=== PATIENT | female | born 1985 | race African-American/Black ===

== ENCOUNTER 2018-12-15 16:54 | Emergency (ER) | payer OTHER ==
[~2018-12-15] VITALS: Ht 167.6 cm; Wt 90.0 kg
[2018-12-15 17:53] VITALS: BP 110/60
== END 2018-12-15 17:54 | disposition home or self-care (01) ==
LOC: EMS 16:55
DX: H02.89 Other specified disorders of eyelid (principal); J30.2 Other seasonal allergic rhinitis

== ENCOUNTER 2023-08-29 14:55 | Emergency (ER) | payer OTHER ==
[~2023-08-29] VITALS: Ht 167.6 cm; Wt 86.4 kg
[2023-08-29 15:01] VITALS: BP 116/76; PULSE 76; RESP 18; TEMP 98
[2023-08-29] MEDS: TraMADol HCL 50 MG TABLET PO ONE (16:51)
[2023-08-29] MEDS ORDERED: TRAM50TA5 PO (16:54)
== END 2023-08-29 17:28 | disposition home or self-care (01) ==
LOC: EMS 14:55
DX: S93.491A Sprain of other ligament of right ankle, initial encounter (principal); X58.XXXA Exposure to other specified factors, initial encounter; Y93.89 Activity, other specified; Y92.89 Other specified places as the place of occurrence of the external cause; Y99.8 Other external cause status
CPT/HCPCS: 99283